=== PATIENT | female | born 1980 | race Caucasian/White ===

== ENCOUNTER → 2022-08-15 | Day surgery (SDC) | payer BC ==
--- NOTE | 2022-08-15 13:35 | RAD REPORT ---
EXAM DESCRIPTION: Ultrasound-guided vacuum assisted right breast core biopsy CLINICAL HISTORY: N63.11 COMPARISON: Follow Up Breast Axilla Comp dated 08/07/2022 FINDINGS: Informed consent was obtained after discussing the risks and benefits of the procedure, an d time-out was performed. The patient's right breast was prepped and draped in the usual sterile fashion. Initial scanning agai n revealed the ovoid hypoechoic 1.3 centimeter mass at 9 o'clock position. 10 mL of 1% lidocaine was used for local anesthetic purposes. Utilizing aseptic technique and ultrasound guidance, a 12 gauge vacuum assisted core biopsy device wa s used to obtain 3 core specimens through the mass of interest. A post biopsy clip was then placed. All collected material was sent for pathology evaluation in formalin. Patient tolerated procedure bety ying IMPRESSION: Successful ultrasound guided vacuum assisted right breast mass biopsy.
== END ==
LOC: DS 08:29
PROVIDERS: ATTEND Obstetrics & Gynecology
DX: N64.9 Disorder of breast, unspecified (principal)
CPT/HCPCS: 19083; 88305